=== PATIENT | female | born 1960 | race Caucasian/White ===

== ENCOUNTER 2016-04-16 18:55 | Emergency (ER) | payer BC ==
[2016-04-16 19:04] VITALS: BP 135/86; PULSE 98; RESP 18; TEMP 98.8
[2016-04-16] MEDS ORDERED: PROPARACAINE 0.5% OPHTH DROPS 15 ML BTL LEFT EYE STA (19:26)
--- NOTE | 2016-04-16 19:56 | XR ---
EXAMINATION TYPE: XR chest 2V DATE OF EXAM: 04/16/2016 7:41 PM COMPARISON: CT chest 07 February 2016 HISTORY: Cough and congestion TECHNIQUE: Frontal and lateral views of the chest are obtained. FINDINGS: There is no focal air space opacity, pleural effusion, or pneumothorax seen. The cardiac silhouette size is within normal limits. The osseous structures are intact. IMPRESSION: No acute cardiopulmonary process.
--- NOTE | 2016-04-16 20:18 | ED ---
General Adult HPI - General Chief complaint: Eye Problems Stated complaint: Bright light in eye Time Seen by Provider: 04/16/16 19:09 Source: patient Mode of arrival: ambulatory Limitations: no limitations - Related Data Home Medications Medication Instructions Recorded Confirmed Ibuprofen [Motrin] 200 mg PO Q6HR PRN 04/16/16 04/16/16 guaiFENesin SYRUP 100MG/5ML 200 mg PO BID PRN 04/16/16 04/16/16 [Robitussin] Allergies Allergy/AdvReac Type Severity Reaction Status Date / Time adhesive Allergy Rash/Hives Verified 04/16/16 19:35 cortisone Allergy Rash/Hives Verified 04/16/16 19:35 Milk Containing Products Allergy Rash/Hives/ Verified 04/16/16 19:35 [Dairy] Vertigo hydrocodone bitartrate AdvReac Nausea & Verified 04/16/16 19:00 [From Vicodin] Vomiting sulfamethoxazole AdvReac dizzy,weak,severe Verified 04/16/16 19:35 [From Bactrim] headache,joint pain trimethoprim [From Bactrim] AdvReac dizzy,weak,severe Verified 04/16/16 19:35 headache,joint pain Review of Systems ROS Statement: Those systems with pertinent positive or pertinent negative responses have been documented in the HPI. ROS Other: All systems not noted in ROS Statement are negative. Past Medical History Past Medical History: Osteoarthritis (OA) History of Any Multi-Drug Resistant Organisms: None Reported Past Surgical History: Hernia Repair, Joint Replacement, Orthopedic Surgery Additional Past Surgical History / Comment(s): right knee replaced, arthroscopies, 10--16 TOTAL LT KNEE REPLACEMENT Past Anesthesia/Blood Transfusion Reactions: No Reported Reaction Past Psychological History: No Psychological Hx Reported Smoking Status: Never smoker Past Alcohol Use History: Occasional Past Drug Use History: None Reported - Past Family History Father Family Medical History: Cancer Mother Additional Family Medical History / Comment(s): TOVA'S GRANULOMATOSIS General Exam Limitations: no limitations Course Vital Signs 04/16/16 04/16/16 19:00 19:35 Temperature 98.8 F Pulse Rate 98 Respiratory 18 18 Rate Blood Pressure 135/86 O2 Sat by Pulse 96 Oximetry Medical Decision Making - Medical Decision Making Medical decision-making. The patient reports that when she looks hard and quickly left the right she sometimes gets a white sparkler-like sensation to her lateral field of vision in the left eye. Visual acuity in the right eye is 20/20 left eye is 20/40. Intraocular pressure is 14 on the left eye. Direct examination finds no evidence of any irregularity. No photophobia. No pain with light shined in either eye. Extraocular movements are normal. Patient denies any change in visual acuity she wears glasses. Currently complaint is the left eye seemed a little blurry. No direct injuries. Vital signs are stable with a blood pressure 135/86. She has been coughing lately. I did discuss the case with her eye doctor, Dr. Moreno. He will see the patient in the office tomorrow at 9:30. Patient told return emergency room this evening if she has any changes difficulties otherwise no heavy lifting no bending over lifting anything over 8 pounds. Cough suppressant [id number] as needed and follow with her doctor tomorrow. Dr. Harris Disposition Clinical Impression: Transient vision disturbance of left eye, URI (upper respiratory infection) Disposition: HOME SELF-CARE Condition: Stable Instructions: Visual Floaters (ED) Additional Instructions: Follow-up with your plastic and reconstructive surgeon Dr. Moreno at 9:30 AM tomorrow morning.Please return to the Emergency Department if symptoms worsen or any other concerns. Referrals: Marco Antonio Duran MD [Primary Care Provider] - 1-2 days
--- NOTE | 2016-04-16 20:21 | ED ---
Eye Problem HPI - General Chief complaint: Eye Problems Stated complaint: Bright light in eye Time Seen by Provider: 04/16/16 19:09 Source: patient, RN notes reviewed Mode of arrival: ambulatory Limitations: no limitations - History of Present Illness Initial comments: 56-year-old female presents emergency Department with chief complaint of bright light in the left eye. Patient states she's notices earlier this afternoon. Patient states she believes it's from coughing is she's been sick recently states that she is constantly coughing. Patient states she gets a bright light when she looks left and right. Patient states it is in her lateral peripheral view. Patient denies any associated pain. Patient states is no blurred vision. Patient states that she's never had any issues like this in the past and denies any surgery on her eyes. Patient denies any trauma. Patient has a headache. - Related Data Home Medications Medication Instructions Recorded Confirmed Ibuprofen [Motrin] 200 mg PO Q6HR PRN 04/16/16 04/16/16 guaiFENesin SYRUP 100MG/5ML 200 mg PO BID PRN 04/16/16 04/16/16 [Robitussin] Allergies Allergy/AdvReac Type Severity Reaction Status Date / Time adhesive Allergy Rash/Hives Verified 04/16/16 19:35 cortisone Allergy Rash/Hives Verified 04/16/16 19:35 Milk Containing Products Allergy Rash/Hives/ Verified 04/16/16 19:35 [Dairy] Vertigo hydrocodone bitartrate AdvReac Nausea & Verified 04/16/16 19:00 [From Vicodin] Vomiting sulfamethoxazole AdvReac dizzy,weak,severe Verified 04/16/16 19:35 [From Bactrim] headache,joint pain trimethoprim [From Bactrim] AdvReac dizzy,weak,severe Verified 04/16/16 19:35 headache,joint pain Review of Systems ROS Statement: Those systems with pertinent positive or pertinent negative responses have been documented in the HPI. ROS Other: All systems not noted in ROS Statement are negative. Past Medical History Past Medical History: Osteoarthritis (OA) History of Any Multi-Drug Resistant Organisms: None Reported Past Surgical History: Hernia Repair, Joint Replacement, Orthopedic Surgery Additional Past Surgical History / Comment(s): right knee replaced, arthroscopies, 1016 TOTAL LT KNEE REPLACEMENT Past Anesthesia/Blood Transfusion Reactions: No Reported Reaction Past Psychological History: No Psychological Hx Reported Smoking Status: Never smoker Past Alcohol Use History: Occasional Past Drug Use History: None Reported - Past Family History Father Family Medical History: Cancer Mother Additional Family Medical History / Comment(s): TOVA'S GRANULOMATOSIS General Exam Limitations: no limitations General appearance: alert, in no apparent distress Head exam: Present: atraumatic, normocephalic, normal inspection Eye exam: Present: normal appearance, PERRL, EOMI. Absent: scleral icterus, conjunctival injection, periorbital swelling Expanded Eyelids: Normal Inspection: Bilateral Pupils: Regular, Round: Bilateral Sclera/Conjunctival: Normal Inspection: Bilateral Anterior chamber: Normal Inspection: Bilateral Visual acuity (R) = 20/: 20 Visual acuity (L) = 20/: 40 With correction: Yes IOP (L) in mmH IOP measured with: [employer]open ENT exam: Present: normal exam, normal oropharynx, mucous membranes moist, TM's normal bilaterally, normal external ear exam Neck exam: Present: normal inspection. Absent: tenderness, meningismus, lymphadenopathy Respiratory exam: Present: normal lung sounds bilaterally. Absent: respiratory distress, wheezes, rales, rhonchi, stridor Cardiovascular Exam: Present: regular rate, normal rhythm, normal heart sounds. 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 Patient will follow-up in office tomorrow morning at 9:30. 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 Moreno at 9:30 AM tomorrow morning.Please return to the Emergency Department if symptoms worsen or any other concerns. Time of Disposition: 20:21
== END 2016-04-16 20:34 | disposition home or self-care (01) ==
LOC: EC 18:55
DX: H53.9 Unspecified visual disturbance (principal); J06.9 Acute upper respiratory infection, unspecified; Z88.8 Allergy status to other drugs, medicaments and biological substances
CPT/HCPCS: 71020; 99284

== ENCOUNTER → 2016-10-08 | Outpatient (CLI) | payer BC ==
--- NOTE | 2016-10-09 14:27 | MM ---
Reason for exam: screening (asymptomatic). Last mammogram was performed 1 year and 1 month ago. History: Patient is postmenopausal. Family history of breast cancer in maternal grandmother at age 63. Physical Findings: A clinical breast exam by your physician is recommended on an annual basis and results should be correlated with mammographic findings. MG 3D Screening Mammo W/Cad Bilateral CC and MLO view(s) were taken. Prior study comparison: September 13, 2015, bilateral MG 3d screening mammo w/cad. April 27, 2008, mammogram, performed at [facility]. There are scattered fibroglandular densities. There is no discrete abnormality. No significant changes when compared with prior studies. ASSESSMENT: Negative, BI-RAD 1 RECOMMENDATION: Routine screening mammogram of both breasts in 1 year.
== END | disposition home or self-care (01) ==
LOC: RADMAMWWP 16:53
PROVIDERS: ATTEND Obstetrics & Gynecology
DX: Z12.31 Encounter for screening mammogram for malignant neoplasm of breast (principal)
CPT/HCPCS: 77063; G0202

== ENCOUNTER → 2017-08-04 | Outpatient (CLI) | payer BC ==
[2017-08-04 18:25] LABS: Hemoglobin A1C 5.5 % (4.0-6.0)
== END | disposition home or self-care (01) ==
LOC: LABWHC1 08:12
PROVIDERS: ATTEND Obstetrics & Gynecology
DX: N95.0 Postmenopausal bleeding (principal); Z13.220 Encounter for screening for lipoid disorders; Z13.1 Encounter for screening for diabetes mellitus
CPT/HCPCS: 36415; 82670; 83001; 83002; 83036; 84443

== ENCOUNTER → 2017-12-09 | Outpatient (CLI) | payer BC ==
--- NOTE | 2017-12-09 10:58 | MM ---
Reason for exam: screening (asymptomatic). Last mammogram was performed 1 year and 2 months ago. History: Patient is postmenopausal. Family history of breast cancer in maternal grandmother at age 63. Physical Findings: A clinical breast exam by your physician is recommended on an annual basis and results should be correlated with mammographic findings. MG 3D Screening Mammo W/Cad Bilateral CC and MLO view(s) were taken. Technologist: RT Vicky (R)(M) Prior study comparison: October 08, 2016, bilateral MG 3d screening mammo w/cad. September 13, 2015, bilateral MG 3d screening mammo w/cad. The breast tissue is almost entirely fat. No significant changes when compared with prior studies. ASSESSMENT: Benign, BI-RAD 2 RECOMMENDATION: Routine screening mammogram of both breasts in 1 year.
== END | disposition home or self-care (01) ==
LOC: RADMAMWWP 07:18
PROVIDERS: ATTEND Obstetrics & Gynecology
DX: Z12.31 Encounter for screening mammogram for malignant neoplasm of breast (principal)
CPT/HCPCS: 77063; 77067